=== PATIENT | male | born 1995 | race Caucasian/White ===

== ENCOUNTER → 2017-04-06 | Outpatient (CLI) | payer BC ==
[~2017-04-06] VITALS: Ht 180.3 cm; Wt 84.5 kg
[2017-04-06 15:50] VITALS: BP 124/75; PULSE 92; Ht 180.3 cm; Wt 84.5 kg
== END | disposition home or self-care (01) ==
LOC: C.NEUR 14:58
PROVIDERS: ATTEND Physician Assistant Medical
DX: G47.00 Insomnia, unspecified (principal)